=== PATIENT | female | born 1995 | race Caucasian/White ===

== ENCOUNTER → 2018-08-18 | Outpatient (CLI) | payer OTHER ==
--- NOTE | 2018-08-18 12:53 | US ---
EXAMINATION TYPE: Transabdominal DATE OF EXAM: 10/04/17 COMPARISON: NONE CLINICAL HISTORY: Z36 Confirm Dates. EXAM PERFORMED: Transabdominal (TA) EXAM MEASUREMENTS: GESTATIONAL AGE / DATING Physician Established: Not yet established Dates by LMP: (8 weeks/6 days) EDC: 03/24/19 Dates by First Scan: No previous this is first scan Dates by Current Scan for: (8 weeks/4 days) EDC: 03/26/19 MATERNAL ANATOMY Uterus: 8.4 x 5.0 x 6.0cm Right Ovary: 1.8 x 1.5 x 1.8cm Left Ovary: 2.0 x 1.3 x 1.4cm Post CDS / Adnexa: wnl Presence of free fluid: no GESTATION / SURVEY CRL: 2.0cm (8 weeks/4 days) Yolk Sac (normal less than 6mm): 4mm Heart Rate: 176 bpm Rhythm: Normal IUP: Live IUP Date of LMP: 03/24/19 Beta HcG (if available): Not available at this time IMPRESSION: Single live intrauterine with a sonographic age of 8 weeks and 4 days and estimated date of delivery of 03/26/2019, concordant with menstrual age.
[2018-08-18 13:15] LABS: HCT 38.9 % (34.0-46.0); MCH 34.4 pg (25.0-35.0); MCHC 33.4 g/dL (31.0-37.0); MCV 103.1 fL (80.0-100.0); Macrocytosis Slight; Mean Platelet Volume 6.4; Platelet Count 256 k/uL (150-450); RBC 3.78 m/uL (3.80-5.40); RDW 12.2 % (11.5-15.5); WBC 7.4 k/uL (3.8-10.6)
[2018-08-18 13:16] LABS: Glucose 87 mg/dL (74-99)
[2018-08-18 20:41] LABS: HIV 1 AB Non-Reactive (Non-Reactive); HIV AB P24 Non-Reactive (Non-Reactive); HIV P24 AG Non-Reactive (Non-Reactive)
[2018-08-21 04:58] LABS: Toxoplasma Antibody (IgG) <3.0 IU/mL (<7.2); Toxoplasma Antibody (IgM) 3.6 AU/mL (<8.0)
== END | disposition home or self-care (01) ==
LOC: RADUSWWP 12:10
PROVIDERS: ATTEND Obstetrics & Gynecology
DX: Z36.89 Encounter for other specified antenatal screening (principal); Z34.81 Encounter for supervision of other normal pregnancy, first trimester
CPT/HCPCS: 36415; 76801; 82565; 82947; 85027; 86762; 86777; 86778; 86780; 86850; 86900; 86901; 87340; 87390

== ENCOUNTER 2019-01-17 23:05 | Outpatient (CLI) | payer OTHER ==
[2019-01-17 23:27] LABS: Appearance,Urine Clear (Clear); Bilirubin,Urine Negative (Negative); Blood,Urine Negative (Negative); Color,Urine Light Yellow; Glucose,Urine (UA) Negative (Negative); Ketones,Urine Negative (Negative); Leukocyte Esterase,Urine Negative (Negative); Nitrite,Urine Negative (Negative); PH, Urine 6.5 (5.0-8.0); Protein,Urine Negative (Negative); Specific Gravity,Urine 1.004 (1.001-1.035); Urobilinogen,Urine <2.0 mg/dL (<2.0)
[2019-01-17] MEDS ORDERED: LACTATED RINGERS 1,000 ML IV ONE (23:40)
[2019-01-17] MEDS: TERBUTALINE 1 MG/ML VIAL SQ PRN (23:54)
[2019-01-18] MEDS: TERBUTALINE 1 MG/ML VIAL SQ PRN ×2 (00:11→00:31)
[2019-01-18 03:41] VITALS: BP 133/67; PULSE 110; RESP 16; TEMP 98.6
--- NOTE | 2019-02-08 09:05 | P.MSEPDOC ---
Presenting Problems - Arrival Data Date of Arrival on Unit: 01/17/19 Time of Arrival on Unit: 23:03 Mode of Transport: Ambulatory - Complaint OB-Reason for Admission/Chief Complaint: Possible Onset of Labor Comment: rubin since 1300 Medical History - Information : 2 Para: 1 Term: 0 : 1 Abortions: Spontaneous or Elective: 0 Number of Living Children: 1 - Gestational Age Gestational Age by JUNG (wks/days): 30 Weeks and 5 Days - History Complications: Prior Review of Systems - Review of Systems Constitutional: No problems Breast: No problems ENT: No problems Cardiovascular: No problems Respiratory: No problems Gastrointestinal: No problems Genitourinary: No problems Musculoskeletal: No problems Neurological: No problems Skin: No problems Vital Signs - Temperature Temperature: 98.6 F Temperature Source: Oral - Pulse Right Sitting Brachial Pulse Rate: 110 Pulse Assessment Method: Automatic Cuff - Respirations Respiratory Rate: 16 Oxygen Delivery Method: Room Air - Blood Pressure Right Arm Sitting Blood Pressure: 133/67 Blood Pressure Mean: 89 Blood Pressure Source: Automatic Cuff Medical Screen Scoring (Pre) - Cervical Exam Dilation: 0 cm = 0 Membranes: Intact - Uterine Contractions Frequency: < 36 weeks = 6 Duration: > 40 seconds = 2 - Maternal Vital Signs Maternal Temperature: N/A Maternal Blood Pressure: N/A Signs of Preeclampsia: N/A Maternal Respirations: N/A - Maternal Trauma Maternal Trauma: N/A - Assessment - Baby A Baseline FHR: 135 Heart Rate - NICHD Category: Category I (Normal) = 0 NST: Reactive - Total Score - Baby A Total Score - Baby A: 8 - Total Score - Baby B Total Score - Baby B: 8 - Total Score - Baby C Total Score - Baby C: 8 - Level of Risk - Baby A Level of Risk - Baby A: Medium (6-9) - Level of Risk - Baby B Level of Risk - Baby B: Medium (6-9) - Level of Risk - Baby C Level of Risk - Baby C: Medium (6-9) Physician Notification (Pre) - Physician Notified Physician Notified Date: 01/17/19 Physician Notified Time: 23:38 Physician/Practitioner Notifed:: Alissa Uriarte Order Received: Yes Medical Screen Scoring (Post) - Uterine Contractions Frequency: > 5 minutes apart = 1 - Assessment - Baby A Heart Rate: 135 Heart Rate - NICHD Category: Category I (Normal) = 0 NST: Reactive - Total Score Total Score - Baby A: 1 Total Score - Baby B: 1 Total Score - Baby C: 1 - Post Treatment Level of Risk Post Treatment Level of Risk - Baby A: Low (0-5) Post Treatment Level of Risk - Baby B: Low (0-5) Post Treatment Level of Risk - Baby C: Low (0-5) Physician Notification (Post) - Physician Notified Physician Notified Date: 01/18/19 Physician Notified Time: 00:52 Physician/Practitioner Notified:: alissa Uriarte Order Received: Yes Disposition - Disposition OB Disposition: Discharge to home, Written follow up instructions reviewed Discharge Date: 01/18/19 Discharge Time: 01:05 I agree with the RN Medical Screening Exam: Yes Risk & Benefit of care provided described in d/c instruction: Yes Diagnosis: FALSE LABOR BEFORE 37 COMPLETED WEEKS OF GEST, THIRD TRI
== END 2019-01-18 01:05 | disposition home or self-care (01) ==
LOC: FBPOP 23:05
PROVIDERS: ATTEND Obstetrics & Gynecology
DX: O47.03 False labor before 37 completed weeks of gestation, third trimester (principal); Z3A.30 30 weeks gestation of pregnancy
CPT/HCPCS: 59025; 96360; 96372; 82731; 81003; G0463; J3105 ×2; 99214

== ENCOUNTER 2019-03-22 05:58 | Inpatient (IN) | payer OTHER ==
[2019-03-22] MEDS ORDERED: LIDOCAINE 0.5% (PF) 5 MG/ML (50 ML SDV) SQ PRN (06:33)
[2019-03-22] MEDS ORDERED: TERBUTALINE 1 MG/ML VIAL SQ PRN (06:33)
[2019-03-22] MEDS ORDERED: OXYTOCIN 10 UNIT/ML 1 ML VIAL IM PRN (06:33)
[2019-03-22] MEDS ORDERED: CARBOPROST TROMETHAMINE 250 MCG/ML 1 ML AMP IM PRN (06:33)
[2019-03-22] MEDS ORDERED: METHYLERGONOVINE 0.2 MG/ML 1 ML AMP IM PRN (06:33)
[2019-03-22 06:42] VITALS: BMI 23.2
[2019-03-22] MEDS ORDERED: OXYTOCIN 30 UNITS/500 ML NS 30 UNIT in SALINE 1 500ML.BAG IV SCH (06:45)
[2019-03-22] MEDS: LACTATED RINGERS 1,000 ML IV SCH ×2 (06:59→07:57)
[2019-03-22 07:22] LABS: Basophils # (A) 0.3 k/uL (0-0.2); Basophils % (A) 2 %; Eosinophils # (A) 0.1 k/uL (0-0.7); Eosinophils % (A) 1 %; HCT 39.2 % (34.0-46.0); HGB 13.3 gm/dL (11.4-16.0); Lymphocytes # (A) 2.3 k/uL (1.0-4.8); Lymphocytes % (A) 20 %; MCH 34.8 pg (25.0-35.0); MCHC 33.9 g/dL (31.0-37.0); MCV 102.8 fL (80.0-100.0); Macrocytosis Slight; Mean Platelet Volume 7.4; Monocytes # (A) 0.6 k/uL (0-1.0); Monocytes % (A) 5 %; Neutrophils # (A) 8.1 k/uL (1.3-7.7); Neutrophils % (A) 70 %; Platelet Count 240 k/uL (150-450); RBC 3.82 m/uL (3.80-5.40); RDW 12.6 % (11.5-15.5); WBC 11.5 k/uL (3.8-10.6)
[2019-03-22] MEDS ORDERED: ROPIVACAINE 5MG/ML 20ML VIAL ONE (07:35)
[2019-03-22] MEDS ORDERED: SODIUM CHLORIDE 0.9% 100 ML BAG ONE (07:35)
[2019-03-22] MEDS ORDERED: fentaNYL (PF) 50 MCG/ML 5 ML AMP ONE (07:35)
--- NOTE | 2019-03-22 08:09 | P.HPOB ---
History of Present Illness H&P Date: 03/22/19 Chief Complaint: Induction of Labor 23-year-old presents at 39 weeks and 5 days for induction of labor. Her cervix is 7 cm dilated, 90% effaced, and -1 station. She is rubin irregularly. heart tones are 1:30 with moderate variability and reactive. Review of Systems All systems: negative Constitutional: Denies chills, Denies fever Eyes: denies blurred vision, denies pain Ears, nose, mouth and throat: Denies headache, Denies sore throat Cardiovascular: Denies chest pain, Denies shortness of breath Respiratory: Denies cough Gastrointestinal: Denies abdominal pain, Denies diarrhea, Denies nausea, Denies vomiting Genitourinary: Denies dysuria, Denies hematuria Musculoskeletal: Denies myalgias Integumentary: Denies pruritus, Denies rash Neurological: Denies numbness, Denies weakness Psychiatric: Denies anxiety, Denies depression Endocrine: Denies fatigue, Denies weight change Past Medical History Past Medical History: No Reported History Additional Past Medical History / Comment(s): Obstetric history: First was a vaginal delivery at 35 weeks 4 lbs. 9 oz. This is her second . She's had care with me since the first trimester. Blood type A+, antibodies negative, rubella immune, hepatitis B negative, HIV nonreactive, toxoplasmosis negative. She had progesterone injections weekly from 16-36 weeks for her history of delivery. Abnormal 1 hour glucose tolerance test, normal 3 hour. History of Any Multi-Drug Resistant Organisms: None Reported Past Surgical History: No Surgical Hx Reported Past Anesthesia/Blood Transfusion Reactions: No Reported Reaction Past Psychological History: No Psychological Hx Reported Smoking Status: Never smoker Past Alcohol Use History: None Reported Past Drug Use History: None Reported - Past Family History Mother Family Medical History: No Reported History Medications and Allergies Home Medications Medication Instructions Recorded Confirmed Type No Known Home Medications 03/22/19 03/22/19 History Allergies Allergy/AdvReac Type Severity Reaction Status Date / Time No Known Allergies Allergy Verified 03/22/19 06:33 Exam Osteopathic Statement: *. No significant issues noted on an osteopathic struct ural exam other than those noted in the History and Physical/Consult. Vital Signs Temp Pulse Resp BP 03/22/19 06:40 97.8 F 112 H 16 129/77 Intake and Output 09/18/19 09/19/19 09/19/19 22:59 06:59 14:59 Other: Weight 59.421 kg Heart: Regular rate and rhythm Lungs: Clear to auscultation bilaterally Abdomen: Soft, nontender Extremities: Negative Homans sign Results Result Diagrams: 03/22/19 06:10 Abnormal Lab Results - Last 24 Hours (Table) 03/22/19 Range/Units 06:10 WBC 11.5 H (3.8-10.6) k/uL MCV 102.8 H (80.0-100.0) fL Neutrophils # 8.1 H (1.3-7.7) k/uL Basophils # 0.3 H (0-0.2) k/uL Assessment and Plan (1) Normal labor Current Visit: Yes Status: Acute Code(s): O80 - ENCOUNTER FOR FULL-TERM UNCOMPLICATED DELIVERY; Z37.9 - OUTCOME OF DELIVERY, UNSPECIFIED SNOMED Code(s): 78788781 Plan: 1. Induction of labor with amniotomy and Pitocin 2. Anticipate normal vaginal delivery
[2019-03-22] MEDS ORDERED: diphenhydrAMINE 50 MG/ML 1 ML VIAL IVP PRN ×2 (11:23)
[2019-03-22] MEDS ORDERED: diphenhydrAMINE 50 MG CAP PO PRN (11:23)
[2019-03-22] MEDS ORDERED: WITCH HAZEL 1 EACH MED..PAD TOPICAL PRN (11:23)
[2019-03-22] MEDS ORDERED: BENZOCAINE/MENTHOL SPRAY 1 GM/SPRAY AEROSOL TOPICAL PRN (11:23)
[2019-03-22] MEDS ORDERED: SIMETHICONE 80 MG CHEWABLE PO PRN (11:23)
[2019-03-22] MEDS ORDERED: HYDROCORTISONE 2.5% RECTAL CREAM 30 GM TUBE RECTAL PRN (11:23)
[2019-03-22] MEDS ORDERED: diphenhydrAMINE 25 MG CAP PO PRN (11:23)
[2019-03-22] MEDS ORDERED: ZOLPIDEM 5 MG TAB PO PRN (11:23)
[2019-03-22] MEDS ORDERED: LANOLIN CREAM 5 GM TUBE TOPICAL PRN (11:23)
[2019-03-22] MEDS ORDERED: ACETAMINOPHEN TAB 325 MG TAB PO PRN (11:23)
[2019-03-22] MEDS ORDERED: DIPH,PERTUS(ACELL)TETVAC-LF 0.5 ML VIAL IM ONE (11:25)
[2019-03-22] MEDS ORDERED: OXYTOCIN 20 UNITS/1000 ML NS 1,000 ML IV SCH (11:30)
--- NOTE | 2019-03-22 12:38 | P.PROBDLV ---
Vaginal Delivery Note - . Vaginal Delivery Note: 23-year-old presents at 39 weeks and 5 days for induction of labor. Her cervix is 7 cm dilated, 90% effaced, and -1 station. She is rubin irregularly. heart tones are 130 with moderate variability and reactive. Pitocin was started and then amniotomy was performed at 7:55 AM and clear fluid noted. At this time patient was 7 cm dilated, 80% effaced, -1 station and comfortable with an epidural. She progressed to complete at 1008. She pushed, and delivered a viable female infant over intact perineum under epidural anesthesia at 10:30. Head delivered OA, anterior shoulder delivered gentle downward guidance. Posterior shoulder and rest of body. Nose and mouth bulb suctioned, cord clamped and cut, infant placed on mother's abdomen. Apgars 8, 9, weight 7 lbs. 15 oz. Placenta delivered spontaneously, intact with three- vessel cord at 10:32 AM. Vagina, cervix, perineum inspected. Secondary midline laceration was repaired with 3-0 Vicryl. Estimated blood loss 200 mL. Mother and baby in stable condition.
[2019-03-22] MEDS: IBUPROFEN 600 MG TAB PO PRN ×2 (13:42→21:12)
[2019-03-22] MEDS ORDERED: METHYLERGONOVINE 0.2 MG/ML 1 ML AMP IM ONE (17:16)
--- NOTE | 2019-03-22 19:44 | P.PN ---
Progress Note - Text Progress Note Date: 03/22/19 (Time of exam was 1715) I was called by nursing staff after patient got up to the bathroom and was noted to be bleeding heavy. There was noted to be a small clot that she passed and blood down her legs. She was cleaned up and put back in bed and later on about an hour later she got up and passed a very large clots and had more heavy bleeding. Nursing staff estimated blood loss by weight was approximately 330 mL's. Her vital signs were stable and she denied any significant pain. I came in to examine her shortly after and she had very minimal blood on her gail-pad. Upon massaging her fundus, it was found to be firm and nontender. No active bleeding was noted. I did give her 1 dose of Methergine just to help control her possible uterine atony. I advised nursing staff to call me if her bleeding picked up any heavier.
[2019-03-22] MEDS: SENNOSIDES-DOCUSATE SODIUM 1 EACH TAB PO SCH (21:12)
[2019-03-22 22:10] VITALS: RESP 14
[2019-03-23] MEDS: LACTATED RINGERS 1,000 ML IV SCH (00:44)
[2019-03-23] MEDS: SENNOSIDES-DOCUSATE SODIUM 1 EACH TAB PO SCH (08:08)
[2019-03-23] MEDS: IBUPROFEN 600 MG TAB PO PRN (08:08)
[2019-03-23 08:51] VITALS: BP 91/64; PULSE 79; TEMP 98.5
== END 2019-03-23 12:15 | disposition home or self-care (01) | DRG 806 ==
LOC: 4FBP 05:58
PROVIDERS: ADMIT Obstetrics & Gynecology; ATTEND Obstetrics & Gynecology
PROC: 10907ZC Drainage of Amniotic Fluid, Therapeutic from Products of Conception, Via Natural or Artificial Opening (ICD-10-PCS; principal; 2019-03-22)
PROC: 10E0XZZ Delivery of Products of Conception, External Approach (ICD-10-PCS; 2019-03-22)
PROC: 0KQM0ZZ Repair Perineum Muscle, Open Approach (ICD-10-PCS; 2019-03-22)
PROC: 3E033VJ Introduction of Other Hormone into Peripheral Vein, Percutaneous Approach (ICD-10-PCS; 2019-03-22)
DX: O70.1 Second degree perineal laceration during delivery (principal); O72.1 Other immediate postpartum hemorrhage; Z37.0 Single live birth; Z3A.39 39 weeks gestation of pregnancy; O09.293 Supervision of pregnancy with other poor reproductive or obstetric history, third trimester
CPT/HCPCS: 85025; 86850; 86900; 86901; 90715

== ENCOUNTER 2019-03-28 11:43 | Observation (INO) | payer OTHER ==
[2019-03-28] MEDS ORDERED: SODIUM CHLORIDE 0.9% 1,000 ML IV STA ×2 (12:48)
[2019-03-28 13:36] LABS: Basophils # (A) 0.2 k/uL (0-0.2); Basophils % (A) 1 %; Eosinophils # (A) 0.2 k/uL (0-0.7); Eosinophils % (A) 1 %; HCT 43.3 % (34.0-46.0); HGB 14.6 gm/dL (11.4-16.0); Lymphocytes # (A) 1.3 k/uL (1.0-4.8); Lymphocytes % (A) 7 %; MCHC 33.8 g/dL (31.0-37.0); MCV 103.4 fL (80.0-100.0); Macrocytosis Slight; Mean Platelet Volume 8.6; Monocytes # (A) 0.6 k/uL (0-1.0); Monocytes % (A) 3 %; Neutrophils # (A) 15.4 k/uL (1.3-7.7); Neutrophils % (A) 87 %; Platelet Count 370 k/uL (150-450); RBC 4.19 m/uL (3.80-5.40); RDW 12.3 % (11.5-15.5); WBC 17.7 k/uL (3.8-10.6)
[2019-03-28 13:43] LABS: African American GFR (CKD) >90 (>60 ml/min/1.73 sqM); Amylase 59 U/L (30-110); Anion Gap 14 mmol/L; Blood Urea Nitrogen 13 mg/dL (7-17); Calcium 9.9 mg/dL (8.4-10.2); Carbon Dioxide 20 mmol/L (22-30); Chloride 110 mmol/L (98-107); Glucose 85 mg/dL (74-99); Sodium 144 mmol/L (137-145); Total Bilirubin 0.7 mg/dL (0.2-1.3)
[2019-03-28 13:46] LABS: ALT 23 U/L (9-52); AST 48 U/L (14-36); Albumin 4.5 g/dL (3.5-5.0); Alkaline Phosphatase 157 U/L (38-126); Potassium 4.6 mmol/L (3.5-5.1); Total Protein 8.1 g/dL (6.3-8.2)
[2019-03-28 13:51] LABS: Appearance,Urine Clear (Clear); Bacteria,Urine Rare /hpf; Bilirubin,Urine Negative (Negative); Blood,Urine Large (Negative); Color,Urine Light Yellow; Glucose,Urine (UA) Negative (Negative); Ketones,Urine Negative (Negative); Leukocyte Esterase,Urine Large (Negative); Mucus,Urine Rare /hpf; Nitrite,Urine Negative (Negative); PH, Urine 6.5 (5.0-8.0); Protein,Urine Negative (Negative); RBC,Urine 13 /hpf (0-5); Specific Gravity,Urine 1.007 (1.001-1.035); Squamous Epithelial Cell,Urine 2 /hpf (0-4); Urobilinogen,Urine <2.0 mg/dL (<2.0); WBC,Urine 56 /hpf (0-5)
--- NOTE | 2019-03-28 14:29 | CT ---
EXAMINATION TYPE: CT abdomen pelvis w con DATE OF EXAM: 03/28/2019 HISTORY: RUQ/umbilical pain [address] delivery [address] DLP: 521mGycm Automated Exposure Control for Dose Reduction was Utilized. CONTRAST: CT scan of the abdomen and pelvis is performed without oral but with IV Contrast, patient injected wi th 100 mL of Isovue 300. COMPARISON: None. FINDINGS: LUNG BASES: No significant abnormality is appreciated. LIVER/GB: No significant abnormality is appreciated. PANCREAS: No significant abnormality is seen. SPLEEN: No significant abnormality is seen. ADRENALS: No significant abnormality is seen. KIDNEYS: Mild to moderate right-sided hydronephrosis and hydroureter up to level of the enlarged uter us. Symmetric cortical medullary uptake and excretion. No renal calculi evident bilaterally. BOWEL: Evaluation of all suboptimal secondary to lack of enteric contrast. Slightly low-lying cecum i nto the right pelvis. Appendix difficult to visualize with certainty. No inflammatory change at base of cecum. UTERUS/ADNEXA: Heterogeneous anteverted enlarged uterus consistent with history of transvaginal deliv melvina one week earlier. Local mass effect is present. Prominent right ovarian vein in the right pelvis felt present. LYMPH NODES: No greater than 1cm abdominal or pelvic lymph nodes are appreciated. OSSEOUS STRUCTURES: No significant abnormality is seen. OTHER: No significant additional abnormality is seen. IMPRESSION: Fairly moderate right-sided hydronephrosis likely on the basis of obstruction related to enlarged uterus from recent . No delayed excretion is seen.
[2019-03-28] MEDS ORDERED: cefTRIAXone IN SWFI 1,000 MG/10 ML SYRINGE IVP STA (14:37)
--- NOTE | 2019-03-28 14:48 | ED ---
Abdominal Pain HPI - General Source: patient, RN notes reviewed, old records reviewed Mode of arrival: ambulatory Limitations: no limitations <Kisha Rawls - Last Filed: 03/28/19 17:48> <Indy Galeana - Last Filed: 03/31/19 14:37> - General Chief Complaint: Abdominal Pain Stated Complaint: Post abd pain Time Seen by Provider: 03/28/19 12:21 - History of Present Illness Initial Comments: Patient is a 23-year-old female presents 7 days post vaginal delivery. She presents today with complaints of onset of lower abdominal pain this morning, complains of some bloody fluid loss and some abnormal revealing vaginal discharge. Patient has had no known fevers. She states the pain is worse on her right side. Patient states that she is not actively breast-feeding. Her CAMPUS ADMINISTRATIVE ASSISTANT is Dr. Barreto. Patient reports that after she had her baby she did have some abnormalities within adhered placenta. She did have some abnormal bleeding post vaginal delivery but then she delivered rest of her placenta. Patient reports to call Dr. Barreto was told to come here for evaluation. (Kisha Rawls) - Related Data Home Medications Medication Instructions Recorded Confirmed Fvv-Eyod-Xazdn Acid 1 cap PO HS 03/28/19 03/28/19 [-U Capsule (formulary)] Previous Rx's Medication Instructions Recorded Ciprofloxacin HCl [Cipro] 250 mg PO Q12HR #14 tablet 03/29/19 Allergies Allergy/AdvReac Type Severity Reaction Status Date / Time No Known Allergies Allergy Verified 03/28/19 21:25 Review of Systems ROS Other: All systems not noted in ROS Statement are negative. <Kisha Rawls - Last Filed: 03/28/19 17:48> ROS Other: All systems not noted in ROS Statement are negative. <Indy Galeana - Last Filed: 03/31/19 14:37> ROS Statement: Those systems with pertinent positive or pertinent negative responses have been documented in the HPI. Past Medical History Past Medical History: No Reported History Additional Past Medical History / Comment(s): Obstetric history: First was a vaginal delivery at 35 weeks 4 lbs. 9 oz. This is her second . She's had care with me since the first trimester. Blood type A+, antibodies negative, rubella immune, hepatitis B negative, HIV nonreactive, toxoplasmosis negative. She had progesterone injections weekly from 16-36 weeks for her history of delivery. Abnormal 1 hour glucose tolerance test, normal 3 hour. History of Any Multi-Drug Resistant Organisms: None Reported Past Surgical History: No Surgical Hx Reported Past Anesthesia/Blood Transfusion Reactions: No Reported Reaction Past Psychological History: No Psychological Hx Reported Smoking Status: Never smoker Past Alcohol Use History: None Reported Past Drug Use History: None Reported - Past Family History Mother Family Medical History: No Reported History <Kisha Rawls - Last Filed: 03/28/19 17:48> General Exam Limitations: no limitations General appearance: alert, in no apparent distress Head exam: Present: atraumatic, normocephalic, normal inspection Eye exam: Present: normal appearance, PERRL, EOMI. Absent: scleral icterus, conjunctival injection, periorbital swelling ENT exam: Present: normal exam, mucous membranes moist Neck exam: Present: normal inspection. Absent: tenderness, meningismus, lymphadenopathy Respiratory exam: Present: normal lung sounds bilaterally Cardiovascular Exam: Present: regular rate, normal rhythm, normal heart sounds. Absent: systolic murmur, diastolic murmur, rubs, gallop, clicks GI/Abdominal exam: Present: soft, tenderness (Suprapubic tenderness to radiation towards right lower quadrant.), normal bowel sounds. Absent: distended, guarding, rebound, rigid External exam: Present: normal external exam, other (Patient has well-appearing sutures. ) Speculum exam: Present: normal speculum exam, vaginal discharge, vaginal bleeding By manual exam: Present: normal by manual exam. Absent: cervical motion tenderness Extremities exam: Present: normal inspection, full ROM, normal capillary refill. Absent: tenderness, pedal edema, joint swelling, calf tenderness Back exam: Present: normal inspection Neurological exam: Present: alert Psychiatric exam: Present: normal affect Skin exam: Present: warm, dry, intact, normal color. Absent: rash <Kisha Rawls - Last Filed: 03/28/19 17:48> - General Exam Comments Initial Comments: This is a 23-year-old female. Alert and oriented 3. (Kisha Rawls) Course Vital Signs 03/28/19 03/28/19 11:52 18:53 Temperature 98.3 F 98.0 F Pulse Rate 92 54 L Respiratory 18 16 Rate Blood Pressure 122/74 110/76 O2 Sat by Pulse 100 98 Oximetry Medical Decision Making - Lab Data Result diagrams: 03/28/19 13:01 03/28/19 13:01 - Radiology Data Radiology results: report reviewed <Kisha Rawls - Last Filed: 03/28/19 17:48> - Lab Data Result diagrams: 03/29/19 06:26 03/29/19 06:26 <Indy Galeana - Last Filed: 03/31/19 14:37> - Medical Decision Making Patient is 23-year-old female, 1 week post vaginal delivery. She presents today with onset of lower abdominal pain, worse towards the right lower quadrant suprapubic pain. She does report some hematuria and did not some foul discharge. She is well-appearing suture sites from pediatric [place]. Patient did have some uterine tenderness and right lower quadrant tenderness and medial exam. CT on pelvis did show some right-sided hydronephrosis related to an enlarged uterus causing obstruction. Patient does report she had a retained placenta after delivery. Patient's white blood count was elevated 17,000. Urin alysis is positive for infection. Urine culture and blood culture are completed. Patient was given 1 g of Rocephin at this time. (Kisha Rawls) I called and discussed the case with Dr. Diana who accepted admission. I will place a consult for urology. Patient is covered with antibiotics for possible endometritis. (Indy Galeana) - Lab Data Lab Results 03/28/19 03/28/19 03/28/19 Range/Units 13:01 13:01 13:01 WBC 17.7 H (3.8-10.6) k/uL RBC 4.19 (3.80-5.40) m/uL Hgb 14.6 (11.4-16.0) gm/dL Hct 43.3 (34.0-46.0) % MCV 103.4 H (80.0-100.0) fL MCH 35.0 (25.0-35.0) pg MCHC 33.8 (31.0-37.0) g/dL RDW 12.3 (11.5-15.5) % Plt Count 370 (150-450) k/uL Neutrophils % 87 % Lymphocytes % 7 % Monocytes % 3 % Eosinophils % 1 % Basophils % 1 % Neutrophils # 15.4 H (1.3-7.7) k/uL Lymphocytes # 1.3 (1.0-4.8) k/uL Monocytes # 0.6 (0-1.0) k/uL Eosinophils # 0.2 (0-0.7) k/uL Basophils # 0.2 (0-0.2) k/uL Macrocytosis Slight Sodium 144 (137-145) mmol/L Potassium 4.6 (3.5-5.1) mmol/L Chloride 110 H (98-107) mmol/L Carbon Dioxide 20 L (22-30) mmol/L Anion Gap 14 mmol/L BUN 13 (7-17) mg/dL Creatinine 0.55 (0.52-1.04) mg/dL Est GFR (CKD-EPI)AfAm >90 (>60 ml/min/1.73 sqM) Est GFR (CKD-EPI)NonAf >90 (>60 ml/min/1.73 sqM) Glucose 85 (74-99) mg/dL Calcium 9.9 (8.4-10.2) mg/dL Total Bilirubin 0.7 (0.2-1.3) mg/dL AST 48 H (14-36) U/L ALT 23 (9-52) U/L Alkaline Phosphatase 157 H (38-126) U/L Total Protein 8.1 (6.3-8.2) g/dL Albumin 4.5 (3.5-5.0) g/dL Amylase 59 (30-110) U/L Lipase 62 (23-300) U/L Urine Color Light Yellow Urine Appearance Clear (Clear) Urine pH 6.5 (5.0-8.0) Ur Specific [place] 1.007 (1.001-1.035) Urine Protein Negative (Negative) Urine Glucose (UA) Negative (Negative) Urine Ketones Negative (Negative) Urine Blood Large H (Negative) Urine Nitrite Negative (Negative) Urine Bilirubin Negative (Negative) Urine Urobilinogen <2.0 (<2.0) mg/dL Ur Leukocyte Esterase Large H (Negative) Urine RBC 13 H (0-5) /hpf Urine WBC 56 H (0-5) /hpf Ur Squamous Epith Cells 2 (0-4) /hpf Urine Bacteria Rare H (None) /hpf Urine Mucus Rare H (None) /hpf Chlamydia Source Chlamydia DNA (PCR) (Neg,Equiv) N. gonorrhoeae Source N.gonorrhoeae DNA Probe (Neg,Equiv) Trichomonas Ag (Rapid) (Negative) 03/28/19 03/28/19 Range/Units 15:52 16:08 WBC (3.8-10.6) k/uL RBC (3.80-5.40) m/uL Hgb (11.4-16.0) gm/dL Hct (34.0-46.0) % MCV (80.0-100.0) fL MCH (25.0-35.0) pg MCHC (31.0-37.0) g/dL RDW (11.5-15.5) % Plt Count (150-450) k/uL Neutrophils % % Lymphocytes % % Monocytes % % Eosinophils % % Basophils % % Neutrophils # (1.3-7.7) k/uL Lymphocytes # (1.0-4.8) k/uL Monocytes # (0-1.0) k/uL Eosinophils # (0-0.7) k/uL Basophils # (0-0.2) k/uL Macrocytosis Sodium (137-145) mmol/L Potassium (3.5-5.1) mmol/L Chloride (98-107) mmol/L Carbon Dioxide (22-30) mmol/L Anion Gap mmol/L BUN (7-17) mg/dL Creatinine (0.52-1.04) mg/dL Est GFR (CKD-EPI)AfAm (>60 ml/min/1.73 sqM) Est GFR (CKD-EPI)NonAf (>60 ml/min/1.73 sqM) Glucose (74-99) mg/dL Calcium (8.4-10.2) mg/dL Total Bilirubin (0.2-1.3) mg/dL AST (14-36) U/L ALT (9-52) U/L Alkaline Phosphatase (38-126) U/L Total Protein (6.3-8.2) g/dL Albumin (3.5-5.0) g/dL Amylase (30-110) U/L Lipase (23-300) U/L Urine Color Urine Appearance (Clear) Urine pH (5.0-8.0) Ur Specific [place] (1.001-1.035) Urine Protein (Negative) Urine Glucose (UA) (Negative) Urine Ketones (Negative) Urine Blood (Negative) Urine Nitrite (Negative) Urine Bilirubin (Negative) Urine Urobilinogen (<2.0) mg/dL Ur Leukocyte Esterase (Negative) Urine RBC (0-5) /hpf Urine WBC (0-5) /hpf Ur Squamous Epith Cells (0-4) /hpf Urine Bacteria (None) /hpf Urine Mucus (None) /hpf Chlamydia Source Vagina Chlamydia DNA (PCR) Negative (Neg,Equiv) N. gonorrhoeae Source Vagina N.gonorrhoeae DNA Probe Negative (Neg,Equiv) Trichomonas Ag (Rapid) Negative (Negative) - Radiology Data CT shows moderate right hydronephrosis without obvious obstruction related to a large uterus from recent . No delayed excretion is seen. (Kisha Rawls) Disposition <Kisha Rawls - Last Filed: 03/28/19 17:48> Is patient prescribed a controlled substance at d/c from ED?: No Decision to Admit Reason: Admit from EC Decision Date: 03/28/19 Decision Time: 19:06 <Indy Galeana - Last Filed: 03/31/19 14:37> Clinical Impression: Status post vaginal delivery, Vaginal discharge, Leukocytosis, Endometritis, Hydronephrosis, right Disposition: ADMITTED IP TO THIS HOSP Condition: Serious
[2019-03-28] MEDS ORDERED: SODIUM CHLORIDE 0.9% 1,000 ML IV ONE (15:46)
--- NOTE | 2019-03-28 17:06 | US ---
EXAMINATION TYPE: US pelvic complete DATE OF EXAM: 03/28/2019 COMPARISON: CT of the same date CLINICAL HISTORY: retained placenta, infection 1 week post delivery. No fever. RLQ pain. Transabdomi nal only due to post status TECHNIQUE: Transabdominal (TA). Transabdominal sonographic images of the pelvis were acquired Date of LMP: x 1 week, EXAM MEASUREMENTS: Uterus: 18.9 x 11.2 x 7.6 cm Endometrial Stripe: 1.9 cm Right Ovary: 3.2 x 1.3 x 1.7 cm Left Ovary: 2.5 x 1.1 x 1.1 cm 1. Uterus: Anteverted Enlarged in size. 2. Endometrium: Appears heterogenous with no focal lesions seen. Upper limits of normal size. No hyp ervascular flow. 3. Right Ovary: wnl 4. Left Ovary: wnl Spectral, color and waveform doppler imaging shows good arterial and venous flow within the ovaries ; there is no evidence for ovarian torsion. 5. Bilateral Adnexa: hydroureter visualized in right adnexa 6. Posterior cul-de-sac: no free fluid IMPRESSION: Although the endometrium is upper limits normal size there is no hypervascular flow and t hickness is not greater than 2 cm and therefore endometrial radius is not favored. Partial visualizat ion of the previously seen right-sided hydronephrosis.
[2019-03-28] MEDS ORDERED: NALOXONE 0.4 MG/ML 1 ML VIAL IV PRN (19:06)
[2019-03-28] MEDS ORDERED: SODIUM CHLORIDE 0.9% 1,000 ML IV SCH (19:15)
[2019-03-28] MEDS ORDERED: GENTAMICIN PER PHARMACY MISCELLANE PRN (19:49)
--- NOTE | 2019-03-28 20:35 | P.HPOB ---
History of Present Illness H&P Date: 03/28/19 Chief Complaint: Right lower quadrant pain Patient is a 23-year-old female day 6 from a spontaneous vaginal delivery. I did review delivery records and at this time I see no significant reason why she would have endometritis, however this is my biggest concern at this time and needs to be fully of evaluated. Patient relates that she had been doing well even up until 5 AM she had not had any problems however late this morning she began having significant right lower quadrant and abdominal pain that was sharp and stabbing and was coming in waves. She denies any nausea, vomiting, fever or chills. However she does relate that she found it difficult to find a position of comfort and that when she called our office she was told to go to the emergency department. She was evaluated in emergency department and had a CAT scan done showing moderate hydronephrosis and hydroureter on the right side and there is some question as to whether not this is obstructed from her uterus. I don't have any ultrasounds from her to compare hydronephrosis this was difficult for me to say, however her uterus is significantly smaller than it was at the time of her delivery and lesser uterus is tipped and sitting directly over the ureter I'm unclear as to why that would cause such a significant change although that is certainly a possibility that it might be executive the correct height 4 causing her symptoms. Urology is consult it and while I debated whether to continue with the consultation of believe that it might be beneficial since HER pain at this time is in the right lower quadrant and along the line of the ureter to at least Evaluate. Should It Become Completely Obstructed There May Be Need for Stent or Other Urologic Procedures to Relieve That Obstruction. There Is No Real Evidence on Ultrasound or CAT Scan for endometritis, however it would appear that she either has a bladder infection or potentially some other urologic issue with large blood and white blood cells in her urine squamous epithelial cells were only 2 cysts appears to be a good sample. White blood cell count is noted to be 17 as well. On physical exam her vital signs are stable and she is currently afebrile. Heart regular, lungs clear, extremities without pain. Abdomen is soft uterus is firm and palpable well below the umbilicus. This feels more central than tipped significantly to the right but pending on positioning it may be tipping off to the right side. Her tremors are without pain. Pelvic exam is not performed. She does relate that her lochia is significantly alternative energy engineer than it has been although there is now an odor to it this may be normal as it has been now 6 days and some of the blood may be causing an odor. She is started on antibiotic both for bladder infection as well as empirically for endometritis. Assessment post day 6 leukocytosis with possible UTI and right hydronephrosis Plan IV antibiotics and urology consultation. Should symptomatology resolved through the night urology may not need evaluate patient. Past Medical History Past Medical History: No Reported History Additional Past Medical History / Comment(s): Obstetric history: First was a vaginal delivery at 35 weeks 4 lbs. 9 oz. This is her second . She's had care with me since the first trimester. Blood type A+, antibodies negative, rubella immune, hepatitis B negative, HIV nonreactive, toxoplasmosis negative. She had progesterone injections weekly from 16-36 weeks for her history of delivery. Abnormal 1 hour glucose tolerance test, normal 3 hour. History of Any Multi-Drug Resistant Organisms: None Reported Past Surgical History: No Surgical Hx Reported Past Anesthesia/Blood Transfusion Reactions: No Reported Reaction Past Psychological History: No Psychological Hx Reported Smoking Status: Never smoker Past Alcohol Use History: None Reported Past Drug Use History: None Reported - Past Family History Mother Family Medical History: No Reported History Medications and Allergies Home Medications Medication Instructions Recorded Confirmed Type [id number] Acid 1 cap PO HS 03/28/19 03/28/19 History [-U Capsule (formulary)] Allergies Allergy/AdvReac Type Severity Reaction Status Date / Time No Known Allergies Allergy Verified 03/28/19 12:08 Exam Osteopathic Statement: *. No significant issues noted on an osteopathic structural exam other than those noted in the History and Physical/Consult. Vital Signs Temp Pulse Resp BP Pulse Ox 03/28/19 18:53 98.0 F 54 L 16 110/76 98 03/28/19 11:52 98.3 F 92 18 122/74 100 Intake and Output 03/28/19 03/28/19 03/28/19 06:59 14:59 22:59 Other: Weight 52.163 kg Results Result Diagrams: 03/28/19 13:01 03/28/19 13:01 Abnormal Lab Results - Last 24 Hours (Table) 03/28/19 03/28/19 03/28/19 Range/Units 13:01 13:01 13:01 WBC 17.7 H (3.8-10.6) k/uL MCV 103.4 H (80.0-100.0) fL Neutrophils # 15.4 H (1.3-7.7) k/uL Chloride 110 H (98-107) mmol/L Carbon Dioxide 20 L (22-30) mmol/L AST 48 H (14-36) U/L Alkaline Phosphatase 157 H (38-126) U/L Urine Blood Large H (Negative) Ur Leukocyte Esterase Large H (Negative) Urine RBC 13 H (0-5) /hpf Urine WBC 56 H (0-5) /hpf Urine Bacteria Rare H (None) /hpf Urine Mucus Rare H (None) /hpf Microbiology - Last 24 Hours (Table) 03/28/19 13:01 Urine Culture - Preliminary Urine,Voided
[2019-03-28 20:45] VITALS: BMI 20.3
[2019-03-28] MEDS ORDERED: GENTAMICIN 260 MG in SODIUM CHLORIDE 0.9% 100 ML IVPB SCH (21:00)
[2019-03-28 21:24] VITALS: RESP 16
[2019-03-28] MEDS: CLINDAMYCIN 900 MG in DEXTROSE 5% IN WATER 50 ML IVPB SCH ×2 (22:12)
[2019-03-29] MEDS ORDERED: GENTAMICIN TROUGH DUE 1 EACH MISC MISCELLANE ONE (06:00)
[2019-03-29] MEDS: CLINDAMYCIN 900 MG in DEXTROSE 5% IN WATER 50 ML IVPB SCH ×2 (06:15)
[2019-03-29 06:21] VITALS: PULSE 59
[2019-03-29 06:51] LABS: Basophils % (A) 0 %; Eosinophils # (A) 0.2 k/uL (0-0.7); Eosinophils % (A) 2 %; HCT 32.8 % (34.0-46.0); Lymphocytes # (A) 2.4 k/uL (1.0-4.8); Lymphocytes % (A) 25 %; MCH 34.5 pg (25.0-35.0); MCHC 33.6 g/dL (31.0-37.0); MCV 102.9 fL (80.0-100.0); Macrocytosis Slight; Mean Platelet Volume 7.5; Monocytes # (A) 0.3 k/uL (0-1.0); Monocytes % (A) 3 %; Neutrophils # (A) 6.5 k/uL (1.3-7.7); Neutrophils % (A) 68 %; Platelet Count 277 k/uL (150-450); RBC 3.19 m/uL (3.80-5.40); WBC 9.6 k/uL (3.8-10.6)
[2019-03-29 07:04] LABS: African American GFR (CKD) >90 (>60 ml/min/1.73 sqM); Anion Gap 7 mmol/L; Blood Urea Nitrogen 11 mg/dL (7-17); Calcium 8.1 mg/dL (8.4-10.2); Carbon Dioxide 21 mmol/L (22-30); Chloride 113 mmol/L (98-107); Glucose 86 mg/dL (74-99); Potassium 3.8 mmol/L (3.5-5.1); Sodium 141 mmol/L (137-145)
[2019-03-29 08:37] VITALS: BP 112/75; TEMP 98.1
[2019-03-29 14:05] LABS: C. trachomatis,PCR Negative (Neg,Equiv); Chlamydia trachomatis Source Vagina; N. gonorrhoeae,PCR Negative (Neg,Equiv); Neisseria Source Vagina
--- NOTE | 2019-03-29 16:45 | P.DS ---
Providers Date of admission: 03/28/19 19:06 Expected date of discharge: 03/29/19 Attending physician: Litzy Barreto Primary care physician: Zach Posada - Discharge Diagnosis(es) (1) UTI (urinary tract infection) Status: Acute Hospital Course: Patient presented about a week after her delivery complaining of increased right lower quadrant pain and she did have a leukocytosis of 20. She had been afebrile but with increased pain and the white count she was admitted overnight for IV antibiotics. She also had a computed tomography scan that showed right hydronephrosis and right hydroureter. Urology was consulted but the took themselves off the case and said they would follow up with her outpatient in 4 weeks. Her white count came down to 9 overnight. Her pain is much better today she is just a little sore in the right lower quadrant. She is not having any increased bleeding or increased pain or increased vaginal discharge. She will be discharged home with an antibiotic to cover her for UTI and to follow-up with me in 5 weeks. Patient Condition at Discharge: Serious Plan - Discharge Summary Discharge Rx Participant: Yes New Discharge Prescriptions: New Ciprofloxacin HCl [Cipro] 250 mg PO Q12HR #14 tablet No Action [id number] Acid [-U Capsule (formulary)] 1 cap PO HS Discharge Medication List [id number] Acid [-U Capsule (formulary)] 1 cap PO HS 03/28/19 [History] Ciprofloxacin HCl [Cipro] 250 mg PO Q12HR #14 tablet 03/29/19 [Rx] Follow up Appointment(s)/Referral(s): Litzy Barreto DO [Doctor of Osteopathic Medicine] - 04/12/19 1:30 pm Esteban Rodriguez MD [STAFF PHYSICIAN] - 05/03/19 1:00 pm Zach Posada MD [Primary Care Provider] - 1-2 days (April) Activity/Diet/Wound Care/Special Instructions: call the office with any questions, comments or concerns. return to the er with worsening symptoms. fluids are always encouraged. regular diet as tolerated. Discharge Disposition: HOME SELF-CARE
== END 2019-03-29 10:43 | disposition home or self-care (01) ==
LOC: EC 11:43 → 6PED 19:06 → INTOOBSV 19:06 → UNDOADMIN 19:06 → UNDODISIN 03-29 10:43
PROVIDERS: ADMIT Obstetrics & Gynecology; ATTEND Obstetrics & Gynecology
DX: O86.21 Infection of kidney following delivery (principal); N13.6 Pyonephrosis; R31.9 Hematuria, unspecified; O99.284 Endocrine, nutritional and metabolic diseases complicating childbirth; E86.9 Volume depletion, unspecified
CPT/HCPCS: 96365; 96366 ×2; 96367; 96361; 96375; 99285; 36415; 80170; 80053; 80048; 82150; 83690; 85025 ×2; 81001; 87040; 87808; 87491; 87591; 87070; 87086; 93975; 76856; 74177; G0378 ×2; J0696; J1580; Q9967; 96374